=== PATIENT | male | born 1975 ===

== ENCOUNTER 2018-12-07 21:43 | Emergency (ER) | payer OTHER ==
[2018-12-07 21:45] VITALS: RESP 16; TEMP 98.1
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
[2018-12-08 03:03] VITALS: BP 125/78; PULSE 79
[2018-12-08 05:35] VITALS: O2SAT 97
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
== END 2018-12-08 02:25 | disposition home or self-care (01) ==
LOC: H.ER 21:43
DX: S59.901A Unspecified injury of right elbow, initial encounter (principal); M54.5 Low back pain; V03.10XA Pedestrian on foot injured in collision with car, pick-up truck or van in traffic accident, initial encounter; Y92.410 Unspecified street and highway as the place of occurrence of the external cause